=== PATIENT | female | born 2000 | race African-American/Black ===

== ENCOUNTER 2021-10-15 06:44 | Emergency (ER) | payer SELFPAY ==
[2021-10-15] MEDS ORDERED: Acetaminophen 500 MG TAB ONE (07:05)
[2021-10-15 07:22] LABS: Bilirubin Negative (Negative); Blood, Urine Negative (Negative); Clarity Clear (Clear); Glucose, Urine (Dipstick) Normal (Negative); Ketone, Urine Negative (Negative); Leukocyte Negative Leu/uL (Negative); Nitrite Negative (Negative); Protein, Urine (Dipstick) Negative (Neg-Trace); Specific Gravity, Urine 1.021 (1.002-1.036); Urobilinogen Normal mg/dL (Less than 2); pH, Urine 6.5 (5.0-9.0)
[2021-10-15 07:25] LABS: Pregnancy Test - Urine (BHCG) Negative (Negative); Pregu Control Background? CLEAR/WHITE (CLR/WHITE); Pregu Control Bar Appear? YES (CONTROL BAR); Specific Gravity 1.021 (1.002-1.036)
[2021-10-15] MEDS ORDERED: Ketorolac Tromethamine 30 MG/ML VIAL ONE (07:33)
== END 2021-10-15 08:05 | disposition home or self-care (01) ==
LOC: ERS 06:44
DX: N83.291 Other ovarian cyst, right side (principal); I10 Essential (primary) hypertension
CPT/HCPCS: 76856; 81003; 81025; 93976; 96372; J1885

== ENCOUNTER 2021-11-22 09:36 | Emergency (ER) | payer SELFPAY | END 2021-11-22 10:51 | disposition home or self-care (01) | LOC: ERS 09:36 | DX: U07.1 COVID-19 (principal) | CPT/HCPCS: 99283; U0003; U0005 ==

== ENCOUNTER 2022-03-23 13:23 | Emergency (ER) | payer OTHER, SELFPAY | END 2022-03-23 15:31 | disposition home or self-care (01) | LOC: ERS 13:23 | DX: L73.2 Hidradenitis suppurativa (principal) | CPT/HCPCS: 99283 ==

== ENCOUNTER 2023-05-23 23:51 | Emergency (ER) | payer OTHER, SELFPAY ==
[2023-05-24 00:14] LABS: Bacteria/HPF None Seen HPF (None Seen); Bilirubin Negative (Negative); Blood, Urine Negative (Negative); CAUTI Indications for Culture Pelvic or flank pain; Clarity Clear (Clear); Glucose, Urine (Dipstick) Normal (Negative); Ketone, Urine Negative (Negative); Leukocyte Negative Leu/uL (Negative); Nitrite Negative (Negative); Protein, Urine (Dipstick) Negative (Neg-Trace); RBC/HPF 0-3 HPF (0-3); Specific Gravity, Urine 1.014 (1.002-1.036); Squamous Epithelial 0-3 HPF (0-3); Urobilinogen Normal mg/dL (Less than 2); WBC/HPF None Seen HPF (0-3)
[2023-05-24 00:16] LABS: Pregnancy Test - Urine (BHCG) Negative (Negative); Pregu Control Background? CLEAR/WHITE (CLR/WHITE); Pregu Control Bar Appear? YES (CONTROL BAR); Specific Gravity 1.014 (1.002-1.036); Urine Culture Reflex No No
== END 2023-05-24 00:46 | disposition home or self-care (01) ==
LOC: ERS 23:51
DX: R30.0 Dysuria (principal)
CPT/HCPCS: 81001; 81025; 99284

== ENCOUNTER 2023-07-12 12:13 | Emergency (ER) | payer SELFPAY ==
[2023-07-12 15:49] LABS: Bilirubin Negative (Negative); Blood, Urine Negative (Negative); CAUTI Indications for Culture Dysuria,urgency,freq; Clarity Clear (Clear); Glucose, Urine (Dipstick) Normal (Negative); Ketone, Urine Negative (Negative); Leukocyte 75 Leu/uL (Negative); Nitrite Negative (Negative); Protein, Urine (Dipstick) Negative (Neg-Trace); RBC/HPF 0-3 HPF (0-3); Specific Gravity, Urine 1.021 (1.002-1.036); Urobilinogen Normal mg/dL (Less than 2)
[2023-07-12 15:50] LABS: Bacteria/HPF 1+ HPF (None Seen)
[2023-07-12 15:51] LABS: Urine Culture Reflex Yes Yes
[2023-07-12 15:53] LABS: Pregnancy Test - Urine (BHCG) Negative (Negative); Pregu Control Background? CLEAR/WHITE (CLR/WHITE); Pregu Control Bar Appear? YES (CONTROL BAR); Specific Gravity 1.021 (1.002-1.036)
== END 2023-07-12 14:53 | disposition left against medical advice (07) ==
LOC: ERS 12:13
DX: Z53.21 Procedure and treatment not carried out due to patient leaving prior to being seen by health care provider (principal)
CPT/HCPCS: 81001; 81025; 87086

== ENCOUNTER 2023-10-30 07:42 | Emergency (ER) | payer SELFPAY | END 2023-10-30 08:55 | disposition home or self-care (01) | LOC: ERS 07:42 | DX: H10.89 Other conjunctivitis (principal) | CPT/HCPCS: 99282 ==

== ENCOUNTER 2024-04-01 08:16 | Emergency (ER) | payer SELFPAY ==
[2024-04-01] MEDS ORDERED: Ondansetron ODT 4 MG TAB ONE (08:58)
[2024-04-01] MEDS ORDERED: Dexamethasone 10 MG/ML VIAL ONE (08:58)
[2024-04-01] MEDS ORDERED: Ibuprofen 800 MG TAB ONE (08:58)
== END 2024-04-01 10:36 | disposition home or self-care (01) ==
LOC: ERS 08:16
DX: B34.9 Viral infection, unspecified (principal)
CPT/HCPCS: 71045; 87081; 87428; 87430; J1100; Q0162